=== PATIENT | male | born 1960 | race Caucasian/White ===

== ENCOUNTER → 2016-03-14 | Outpatient (CLI) | payer OTHER ==
[~2016-03-14] MED LIST: ALEVE220 M2 PO; ALEVE220 MG PO; ASPIR-LOW81 MG PO; ECOTRIN325 MG PO; Ecotrin PO; FENOFIBRATE150 MG PO; FLONASE16 G1 BOTH NARES; PREVACID30 MG PO; TRAMADOL HCL50 MG PO; ULTRAM50 MG PO; Zocor PO
== END | disposition home or self-care (01) ==
LOC: CDC 08:51
DX: Z01.810 Encounter for preprocedural cardiovascular examination (principal); K42.9 Umbilical hernia without obstruction or gangrene
CPT/HCPCS: 93000

== ENCOUNTER 2016-05-17 10:14 | Day surgery (SDC) | payer OTHER ==
[~2016-05-17] VITALS: Ht 172.7 cm; Wt 140.6 kg
[2016-05-17 10:37] VITALS: BP 143/93
[2016-05-17] MEDS ORDERED: PERCOCET 5/31 TABLET PO (13:39)
[2016-05-17 15:20] VITALS: BP 99/56
[2016-05-17 16:35] VITALS: BP 128/61
[2016-05-17 19:00] VITALS: BP 92/49
== END 2016-05-17 19:20 | disposition home or self-care (01) ==
LOC: SDC 10:14
PROC: 0WUF4JZ Supplement Abdominal Wall with Synthetic Substitute, Percutaneous Endoscopic Approach (ICD-10-PCS; principal; 2016-05-17)
DX: K42.0 Umbilical hernia with obstruction, without gangrene (principal); E66.01 Morbid (severe) obesity due to excess calories; Z68.43 Body mass index [BMI] 50.0-59.9, adult; G25.0 Essential tremor; K21.9 Gastro-esophageal reflux disease without esophagitis; R73.9 Hyperglycemia, unspecified; E78.5 Hyperlipidemia, unspecified; F17.200 Nicotine dependence, unspecified, uncomplicated; G47.33 Obstructive sleep apnea (adult) (pediatric); M17.0 Bilateral primary osteoarthritis of knee; Z80.3 Family history of malignant neoplasm of breast; Z82.49 Family history of ischemic heart disease and other diseases of the circulatory system; Z88.1 Allergy status to other antibiotic agents; Z88.5 Allergy status to narcotic agent; Z88.8 Allergy status to other drugs, medicaments and biological substances
CPT/HCPCS: C1781; J0131; J0330; J0690; J1100; J1170; J1885; J2250; J2405; J2710; J2765; J3010